=== PATIENT | male | born 1965 | race Two or more races ===

== ENCOUNTER 2018-10-20 10:41 | Emergency (ER) | payer SELFPAY ==
[~2018-10-20] VITALS: Ht 167.6 cm; Wt 74.8 kg
[2018-10-20 11:12] VITALS: BP 123/76
[2018-10-20] MEDS ORDERED: KETOROLAC 30 MG/1 ML ONE (11:44)
[2018-10-20] MEDS ORDERED: KETOROLAC 30 MG/1 ML IM ONE (12:00)
== END 2018-10-20 12:04 | disposition home or self-care (01) ==
LOC: ED 11:50
DX: M25.461 Effusion, right knee (principal); M25.561 Pain in right knee; F17.210 Nicotine dependence, cigarettes, uncomplicated
CPT/HCPCS: 96372; 99283; J1885

== ENCOUNTER 2019-01-05 20:28 | Emergency (ER) | payer SELFPAY ==
[~2019-01-05] VITALS: Ht 170.2 cm; Wt 75.1 kg
[2019-01-05 20:34] VITALS: BP 133/94
== END 2019-01-05 20:59 | disposition home or self-care (01) ==
LOC: ED 20:56
DX: M13.161 Monoarthritis, not elsewhere classified, right knee (principal); M25.561 Pain in right knee
CPT/HCPCS: 99282